=== PATIENT | female | born 1975 | race American Indian/Alaskan Native ===

== ENCOUNTER 2016-05-13 13:48 | Emergency (ER) | payer SELFPAY ==
[2016-05-13] MEDS ORDERED: LORazepam 2 MG/ML MDV IVPUSH ONE (14:01)
[2016-05-13] MEDS ORDERED: Sodium Chloride 0.9% 2.5 ML Syringe FLUSH PRN ×2 (14:02)
[2016-05-13] MEDS ORDERED: Sodium Chloride 0.9% 10 ML Syringe FLUSH PRN ×2 (14:02)
[2016-05-13] MEDS ORDERED: Sodium Chloride 0.9% 1,000 ML IV ONE ×2 (14:02→15:32)
--- NOTE | 2016-05-13 14:16 | EDM.PDOC ---
ED HPI SEIZURE COMPLAINT - General Chief Complaint: Neuro Symptoms/Deficits Stated Complaint: EPILEPSY Time Seen by Provider: 05/13/16 13:53 Source of Information: Reports: EMS History Limitations: Reports: Altered mental status, Other (Patient is Postictal ) - History of Present Illness INITIAL COMMENTS - FREE TEXT/NARRATIVE: HISTORY AND PHYSICAL: History of present illness: [40-year-old female with a history of seizures per EMS now brought in for evaluation of suspected seizure. Apparently patient was at a pulled ornament and per EMS had 5 seizures this morning. Unclear what medications patient is on or if she has been compliant with them. No known drug abuse or trauma. Patient does drink alcohol frequently and apparently has been drinking heavily last night and today per EMS. Patient had a 15 second episode of shaking on arrival in the emergency department. She was able to open her eyes to command and follow commands immediately after this episode] Review of systems: As per history of present illness and below otherwise all systems reviewed and negative. Past medical history: As per history of present illness and as reviewed below otherwise noncontributory. Surgical history: As per history of present illness and as reviewed below otherwise noncontributory. Social history: No reported history of drug or alcohol abuse. Family history: As per history of present illness and as reviewed below otherwise noncontributory. Physical exam: HEENT: Atraumatic, normocephalic, pupils reactive, negative for conjunctival pallor or scleral icterus, mucous membranes moist, neck supple, nontender, trachea midline. Lungs: Clear to auscultation, breath sounds equal bilaterally, chest nontender. Heart: S1S2, regular, negative for clicks, rubs, or JVD. Abdomen: Soft, nondistended, nontender. Negative for masses or hepatosplenomegaly. Negative for costovertebral tenderness. Pelvis: Stable nontender. Genitourinary: Deferred. Rectal: Deferred. Extremities: Atraumatic, negative for cords or calf pain. Neurovascular unremarkable. Neuro: Patient "postictal" from seizure-like activity she had on arrival in the emergency department, however she is able to follow commands and has no focal neurologic deficit. Cranial nerves grossly unremarkable. Cerebellum unremarkable. Motor and sensory unremarkable throughout. Exam nonfocal. Diagnostics: [] Therapeutics: [] Impression: [] Plan: [Patient status post suspected seizure versus possibility of pseudoseizure. Patient's history is not well-known and her apparently stayed at the pool saab after patient was transported to the emergency department for emergency evaluation after 5 reported generalized tonic-clonic seizures. Patient nonfocal neurologically the emergency department. Full workup pending including urine drug screen and CT of the head. IV fluids administered. 5 mg of midazolam given prior to arrival by ems. On multiple reexamins patient clinically stable with a nonfocal neurologic exam. Patient had multiple episodes of seizure-like activity in the emergency department and was observed to be conscious and communicative either during each one, or immediately thereafter. Patient with no postictal symptoms whatsoever and she is completely and fully conversant the instant her shaking stops. CT the head unremarkable. Remainder of workup also unremarkable. Patient hydrated with 2 L of normal saline. Mildly dry mucous membranes on presentation. Initial tachycardia improved to 104 on M.D. reevaluation prior to discharge. Patient states she feels baseline and wants to go home. She comfortable and well-appearing. His were to drink plenty of fluids and followup with her doctor and her neurologist in the morning. Patient aware of critical importance of compliance with her medication regimen. Strict return precautions given Definitive disposition and diagnosis as appropriate pending reevaluation and review of above. Event Occurred (Where): other - Related Data Allergies/ADRs: Allergies Allergy/AdvReac Type Severity Reaction Status Date / Time Penicillins Allergy Rash Verified 05/13/16 14:37 Home Meds: Home Meds Divalproex Sodium [Depakote] 250 mg PO BIDMEALS 05/13/16 [History] Hypertension Medication 05/13/16 [History] Past Medical History HEENT History: Reports: None Cardiovascular History: Reports: None Respiratory History: Reports: None Gastrointestinal History: Reports: None Genitourinary History: Reports: None VEGETABLES COOK History: Reports: None Musculoskeletal History: Reports: None Neurological History: Reports: Seizure Psychiatric History: Reports: None Endocrine/Metabolic History: Reports: None Hematologic History: Reports: None Immunologic History: Reports: None Oncologic (Cancer) History: Reports: None Dermatologic History: Reports: None - Infectious Disease History Infectious Disease History: Reports: None - Past Surgical History Head Surgeries/Procedures: Reports: None HEENT Surgical History: Reports: None Cardiovascular Surgical History: Reports: None Respiratory Surgical History: Reports: None GI Surgical History: Reports: None Female Surgical History: Reports: None Endocrine Surgical History: Reports: None Neurological Surgical History: Reports: None Musculoskeletal Surgical History: Reports: None Dermatological Surgical History: Reports: None Social & Family History - Family History Family Medical History: Noncontributory - Tobacco Use Smoking Status *Q: Current Some Day Smoker Years of Tobacco use: 10 Packs/Tins Daily: 0.2 - Caffeine Use Caffeine Use: Reports: None - Recreational Drug Use Recreational Drug Use: No ED ROS GENERAL - Review of Systems Review Of Systems: See Below (Per history of present illness) - Physical Exam Exam: See Below (Per history of present illness) Course - Vital Signs Last Recorded V/S: Last Vital Signs Temp 36.2 C 05/13/16 13:51 Pulse 116 H 05/13/16 17:20 Resp 15 05/13/16 17:20 BP 132/78 05/13/16 17:20 Pulse Ox 98 05/13/16 17:20 - Orders/Labs/Meds Orders: Active Orders 24 hr Category Date Time Status EKG Documentation Completion [RC] STAT Care 05/13/16 14:02 Active Peripheral IV Care [RC] . DIRECTED Care 05/13/16 14:02 Active Chest 1V Frontal [CR] Stat Exams 05/13/16 14:02 Taken Head wo Cont [CT] Stat Exams 05/13/16 14:05 Taken Sodium Chloride 0.9% [Saline Flush] Med 05/13/16 14:02 Active 10 ml FLUSH ASDIRECTED PRN Sodium Chloride 0.9% [Saline Flush] Med 05/13/16 14:02 Active 10 ml FLUSH ASDIRECTED PRN Sodium Chloride 0.9% [Saline Flush] Med 05/13/16 14:02 Active 2.5 ml FLUSH ASDIRECTED PRN Sodium Chloride 0.9% [Saline Flush] Med 05/13/16 14:02 Active 2.5 ml FLUSH ASDIRECTED PRN Peripheral IV Insertion Adult [OM.PC] Stat Oth 05/13/16 14:02 Ordered Medication Orders Sodium Chloride (Saline Flush) 10 ml FLUSH ASDIRECTED PRN PRN Reason: Keep Vein Open Last Admin: 05/13/16 14:06 Dose: 10 ml Sodium Chloride (Saline Flush) 2.5 ml FLUSH ASDIRECTED PRN PRN Reason: Keep Vein Open Last Admin: 05/13/16 14:06 Dose: 2.5 ml Sodium Chloride (Saline Flush) 10 ml FLUSH ASDIRECTED PRN PRN Reason: Keep Vein Open Last Admin: 05/13/16 14:06 Dose: 10 ml Sodium Chloride (Saline Flush) 2.5 ml FLUSH ASDIRECTED PRN PRN Reason: Keep Vein Open Last Admin: 05/13/16 14:06 Dose: 2.5 ml Labs: Laboratory Tests 05/13/16 05/13/16 05/13/16 Range/Units 14:40 14:40 14:40 WBC 11.87 H (4.0-11.0) K/uL RBC 4.78 (4.30-5.90) M/uL Hgb 13.4 (12.0-16.0) g/dL Hct 40.9 (36.0-46.0) % MCV 85.6 (80.0-98.0) fL MCH 28.0 (27.0-32.0) pg MCHC 32.8 (31.0-37.0) g/dL RDW Std Deviation 43.4 (28.0-62.0) fl RDW Coeff of Rebecca 14 (11.0-15.0) % Plt Count 254 (150-400) K/uL MPV 9.50 (7.40-12.00) fL Neut % (Auto) 77.0 (48.0-80.0) % Lymph % (Auto) 16.7 (16.0-40.0) % Island % (Auto) 5.8 (0.0-15.0) % Eos % (Auto) 0.4 (0.0-7.0) % Baso % (Auto) 0.1 (0.0-1.5) % Neut # (Auto) 9.1 H (1.4-5.7) K/uL Lymph # (Auto) 2.0 (0.6-2.4) K/uL Island # (Auto) 0.7 (0.0-0.8) K/uL Eos # (Auto) 0.1 (0.0-0.7) K/uL Baso # (Auto) 0.0 (0.0-0.1) K/uL Nucleated RBC % 0.0 /100WBC Nucleated RBCs # 0 K/uL Sodium 143 (136-146) mmol/L Potassium 3.4 L (3.5-5.1) mmol/L Chloride 114 H (98-110) mmol/L Carbon Dioxide 19 L (21-31) mmol/L BUN 9 (6.0-23.0) mg/dL Creatinine 0.8 (0.6-1.5) mg/dL Est Cr Clr Drug Dosing 75.41 mL/min Estimated GFR (MDRD) > 60.0 ml/min Glucose 93 (60-110) mg/dL Calcium 8.1 L (8.8-10.8) mg/dL Troponin I < 0.10 (0.0-0.29) NG/ML Urine Color Urine Appearance Urine pH (5.0-8.0) Ur Specific [employer] (1.001-1.035) Urine Protein (NEGATIVE) mg/dL Urine Glucose (UA) (NEGATIVE) mg/dL Urine Ketones (NEGATIVE) mg/dL Urine Occult Blood (NEGATIVE) Urine Nitrite (NEGATIVE) Urine Bilirubin (NEGATIVE) Urine Urobilinogen (<2.0) EU/dL Ur Leukocyte Esterase (NEGATIVE) Urine RBC (0-2/HPF) Urine WBC (0-5/HPF) Ur Epithelial Cells (NONE-FEW) Urine Bacteria (NEGATIVE) Urine Opiates Screen (NEGATIVE) Ur Oxycodone Screen (NEGATIVE) Urine Methadone Screen (NEGATIVE) Ur Barbiturates Screen (NEGATIVE) Valproic Acid (50-125) Ug/mL Ur Phencyclidine Scrn (NEGATIVE) Ur Amphetamine Screen (NEGATIVE) U Methamphetamines Scrn (NEGATIVE) U Benzodiazepines Scrn (NEGATIVE) U Cocaine Metab Screen (NEGATIVE) U Marijuana (THC) Screen (NEGATIVE) 05/13/16 05/13/16 05/13/16 Range/Units 14:40 16:30 16:30 WBC (4.0-11.0) K/uL RBC (4.30-5.90) M/uL Hgb (12.0-16.0) g/dL Hct (36.0-46.0) % MCV (80.0-98.0) fL MCH (27.0-32.0) pg MCHC (31.0-37.0) g/dL RDW Std Deviation (28.0-62.0) fl RDW Coeff of Rebecca (11.0-15.0) % Plt Count (150-400) K/uL MPV (7.40-12.00) fL Neut % (Auto) (48.0-80.0) % Lymph % (Auto) (16.0-40.0) % Island % (Auto) (0.0-15.0) % Eos % (Auto) (0.0-7.0) % Baso % (Auto) (0.0-1.5) % Neut # (Auto) (1.4-5.7) K/uL Lymph # (Auto) (0.6-2.4) K/uL Island # (Auto) (0.0-0.8) K/uL Eos # (Auto) (0.0-0.7) K/uL Baso # (Auto) (0.0-0.1) K/uL Nucleated RBC % /100WBC Nucleated RBCs # K/uL Sodium (136-146) mmol/L Potassium (3.5-5.1) mmol/L Chloride (98-110) mmol/L Carbon Dioxide (21-31) mmol/L BUN (6.0-23.0) mg/dL Creatinine (0.6-1.5) mg/dL Est Cr Clr Drug Dosing mL/min Estimated GFR (MDRD) ml/min Glucose (60-110) mg/dL Calcium (8.8-10.8) mg/dL Troponin I (0.0-0.29) NG/ML Urine Color YELLOW Urine Appearance CLEAR Urine pH 6.5 (5.0-8.0) Ur Specific [employer] 1.010 (1.001-1.035) Urine Protein NEGATIVE (NEGATIVE) mg/dL Urine Glucose (UA) NEGATIVE (NEGATIVE) mg/dL Urine Ketones NEGATIVE (NEGATIVE) mg/dL Urine Occult Blood NEGATIVE (NEGATIVE) Urine Nitrite NEGATIVE (NEGATIVE) Urine Bilirubin NEGATIVE (NEGATIVE) Urine Urobilinogen 0.2 (<2.0) EU/dL Ur Leukocyte Esterase TRACE (NEGATIVE) Urine RBC 0-1 (0-2/HPF) Urine WBC 0-2 (0-5/HPF) Ur Epithelial Cells FEW (NONE-FEW) Urine Bacteria FEW (NEGATIVE) Urine Opiates Screen NEGATIVE (NEGATIVE) Ur Oxycodone Screen NEGATIVE (NEGATIVE) Urine Methadone Screen NEGATIVE (NEGATIVE) Ur Barbiturates Screen NEGATIVE (NEGATIVE) Valproic Acid < 12.5 L (50-125) Ug/mL Ur Phencyclidine Scrn NEGATIVE (NEGATIVE) Ur Amphetamine Screen NEGATIVE (NEGATIVE) U Methamphetamines Scrn NEGATIVE (NEGATIVE) U Benzodiazepines Scrn NEGATIVE (NEGATIVE) U Cocaine Metab Screen NEGATIVE (NEGATIVE) U Marijuana (THC) Screen NEGATIVE (NEGATIVE) Meds: Medications Generic Name Dose Route Start Last Admin Trade Name Freq PRN Reason Stop Dose Admin Sodium Chloride 10 ml 05/13/16 14:02 05/13/16 14:06 Saline Flush FLUSH 10 ml ASDIRECTED PRN Administration Keep Vein Open Sodium Chloride 2.5 ml 05/13/16 14:02 05/13/16 14:06 Saline Flush FLUSH 2.5 ml ASDIRECTED PRN Administration Keep Vein Open Sodium Chloride 10 ml 05/13/16 14:02 05/13/16 14:06 Saline Flush FLUSH 10 ml ASDIRECTED PRN Administration Keep Vein Open Sodium Chloride 2.5 ml 05/13/16 14:02 05/13/16 14:06 Saline Flush FLUSH 2.5 ml ASDIRECTED PRN Administration Keep Vein Open Discontinued Medications Generic Name Dose Route Start Last Admin Trade Name Freq PRN Reason Stop Dose Admin Divalproex Sodium 500 mg 05/13/16 15:49 05/13/16 15:59 Depakote Er PO 05/13/16 15:50 500 mg ONETIME ONE Administration Sodium Chloride 1,000 mls @ 999 mls/hr 05/13/16 14:02 05/13/16 14:06 Normal Saline IV 05/13/16 15:02 999 mls/hr .Bolus ONE Administration Sodium Chloride 1,000 mls @ 999 mls/hr 05/13/16 15:32 05/13/16 15:35 Normal Saline IV 05/13/16 16:32 999 mls/hr STAT ONE Administration Lorazepam 1 mg 05/13/16 14:01 Ativan IVPUSH 05/13/16 14:02 ONETIME ONE Departure - Departure Time of Disposition: 17:33 Disposition: Home, Self-Care 01 Condition: good Clinical Impression: Pseudoseizure, Hx of medication noncompliance Referrals: PCP,None [Primary Care Provider] - Forms: ED Department Discharge Additional Instructions: Your valproic acid level was low today and suggestive that you have not been taking this medication as prescribed. Always take prescriptions exactly as directed by your doctor. Or shaking today was consistent with pseudoseizures, apparently witnesses felt that you may have had a generalized seizure prior to arrival. Follow up with your doctor and your neurologist tomorrow. Return immediately for new severe or worsening symptoms - My Orders Last 24 Hours: My Active Orders 05/13/16 14:02 EKG Documentation Completion [RC] STAT Peripheral IV Care [RC] . DIRECTED Chest 1V Frontal [CR] Stat Sodium Chloride 0.9% [Saline Flush] 10 ml FLUSH ASDIRECTED PRN Sodium Chloride 0.9% [Saline Flush] 10 ml FLUSH ASDIRECTED PRN Sodium Chloride 0.9% [Saline Flush] 2.5 ml FLUSH ASDIRECTED PRN Sodium Chloride 0.9% [Saline Flush] 2.5 ml FLUSH ASDIRECTED PRN Peripheral IV Insertion Adult [OM.PC] Stat 05/13/16 14:05 Head wo Cont [CT] Stat - Assessment/Plan Last 24 Hours: My Active Orders 05/13/16 14:02 EKG Documentation Completion [RC] STAT Peripheral IV Care [RC] . DIRECTED Chest 1V Frontal [CR] Stat Sodium Chloride 0.9% [Saline Flush] 10 ml FLUSH ASDIRECTED PRN Sodium Chloride 0.9% [Saline Flush] 10 ml FLUSH ASDIRECTED PRN Sodium Chloride 0.9% [Saline Flush] 2.5 ml FLUSH ASDIRECTED PRN Sodium Chloride 0.9% [Saline Flush] 2.5 ml FLUSH ASDIRECTED PRN Peripheral IV Insertion Adult [OM.PC] Stat 05/13/16 14:05 Head wo Cont [CT] Stat
[2016-05-13 15:08] LABS: CHLORIDE,CL 114 mmol/L (98-110); SODIUM,NA 143 mmol/L (136-146)
[2016-05-13] MEDS ORDERED: Divalproex Sodium 500 MG Tab.ER PO ONE (15:49)
[2016-05-13 17:21] VITALS: BP 132/78
--- NOTE | 2016-05-15 17:47 | CT ---
EXAM DATE: 05/13/16 PATIENT'S AGE: 40 PATIENT: LENCHO SAWYER Facility: [place], [place] Site . Site : 1975 Study: CT Head [id number] 2:57:15 PM Ordering Physician: Federico Rowland Final Report: HISTORY: Seizure. Technique: Unenhanced head CT with coronal and sagittal reformations. Comparison: None. Findings: There is no intracranial hemorrhage. No edema or mass effect are seen. No mass lesion is seen. The ventricles are normal in size and position. The mcgrath-white matter differentiation is normal. The included paranasal sinuses, mastoid air cells, and middle ears are normally aerated. No skull lesion is seen. Impression: Negative unenhanced head CT. Dictated by Eliezer Burt MD @ May 13 2016 3:18PM (Electronic Signature) Report Signed by Proxy and Original Signed Document filed in the Medical Record. [email or web address]
--- NOTE | 2016-05-15 17:48 | CR ---
EXAM DATE: 05/13/16 PATIENT'S AGE: 40 Patient: LENCHO SAWYER Facility: [place], [place] Site . Site : 1975 Study: XRay Chest [id number] 3:04:43 PM Ordering Physician: Federico Rowland Final Report: INDICATION: seizure Single AP view Findings: The lungs are clear. Pulmonary vascularity, mediastinum and cardiac silhouette are within normal limits. No effusions and no pneumothorax. Osseous structures appear unremarkable. Impression: No evidence of acute cardiopulmonary disease. Dictated by: Bear Mahajan MD @ 05/13/2016 15:20:37 (Electronic Signature) Report Signed by Proxy and Original Signed Document filed in the Medical Record. MTDD
== END 2016-05-13 18:32 | disposition home or self-care (01) ==
LOC: MW.ED 13:48
DX: R56.9 Unspecified convulsions (principal); Z88.0 Allergy status to penicillin
CPT/HCPCS: 36415; 70450; 71010; 80048; 80164; 80305; 81001; 84484; 85025; 93005; 96360; 96361; 99285; A9270; J7040; 99284